=== PATIENT | female | born 1990 | race Caucasian/White ===

== ENCOUNTER 2019-06-25 10:55 | Emergency (ER) | payer BC ==
[~2019-06-25] VITALS: Ht 160 cm; Wt 68.9 kg
[2019-06-25 11:10] VITALS: BP 128/88
[2019-06-25 13:33] LABS: BASOPHILS % (AUTO) 0.2 % (0.0-2.0); EOSINOPHILS % (AUTO) 0.1 % (0.0-4.0); HEMATOCRIT 37.1 % (36-48); LYMPHOCYTES # (AUTO) 1.5 K/uL (2.5-16.5); LYMPHOCYTES % (AUTO) 20.4 % (20.5-51.1); MEAN CORPUSCULAR HEMOGLOBIN 28 pg (27-31); MEAN CORPUSCULAR HGB CONC 32 g/dL (33-37); MEAN CORPUSCULAR VOLUME 85.1 fL (80-94); MONOCYTES # (AUTO) 0.4 K/uL (0.8-1.0); MONOCYTES % (AUTO) 5.8 % (1.7-9.3); NEUTROPHILS # (AUTO) 5.3 K/uL (1.8-7.7); NEUTROPHILS % (AUTO) 73.5 % (42.2-75.2); PLATELET COUNT (AUTO) 236 K/uL (140-450); RED BLOOD CELL COUNT(AUTO) 4.36 MIL/uL (4.20-5.40); WHITE BLOOD COUNT (AUTO) 7.2 K/uL (4.8-10.8)
[2019-06-25 13:49] LABS: ANION GAP 12.1 (8-16); CARBON DIOXIDE 27.4 mmol/L (21-32); CREATININE 1.1 mg/dL (0.6-1.3); POTASSIUM 3.5 mmol/L (3.5-5.1)
[2019-06-25 14:06] LABS: APPEARANCE,URINE SL CLOUDY (CLEAR); BILIRUBIN,URINE NEGATIVE (NEGATIVE); BLOOD, URINE 2+ (NEGATIVE); LEUKOCYTE ESTERASE ,URINE NEGATIVE (NEGATIVE); NITRITE, URINE NEGATIVE (NEGATIVE); PH,URINE 6.5 (5.0-9.0); UGLUCOSE NEGATIVE (NEGATIVE)
[2019-06-25 14:26] LABS: COLOR,URINE STRAW (YELLOW); RBC,URINE 0-5 /HPF (0-5); WBC,URINE 0-5 /HPF (0-5)
[2019-06-25 15:21] VITALS: BP 121/83
[2019-06-27 06:12] LABS: CHLAMYDIA TRACHOMATIS AMP DNA Negative (Negative)
== END 2019-06-25 15:21 | disposition home or self-care (01) ==
LOC: MED 10:55
DX: O20.8 Other hemorrhage in early pregnancy (principal); Z98.890 Other specified postprocedural states
CPT/HCPCS: 36415; 76817; 80048; 81001; 81025; 84702; 85025; 86900; 86901; 87210; 87491; 99284; Q0092

== ENCOUNTER 2019-06-26 16:57 | Emergency (ER) | payer BC ==
[~2019-06-26] VITALS: Ht 160 cm; Wt 68.0 kg
[2019-06-26 17:07] VITALS: BP 118/90
--- NOTE | 2019-06-26 17:11 | NUR ---
AMBULATED TO BED 12
--- NOTE | 2019-06-26 17:12 | NUR ---
Pt taken to bed 12. Report given to Brenda DIAZ.
--- NOTE | 2019-06-26 17:14 | NUR ---
29/F C/O PAINLESS VAGINAL BLEEDING X 2 DAYS, SEEN HERE YESTERDAY FOR VAGINAL SPOTTING DURING . APPROX 5 WEEKS PER PT. STATES TODAY PASSED LARGE CLOT AND TISSUE LIKE CLOT. VSS. TO BED 12, ALL SAFETY PRECAUTIONS IN PLACE. HX NONE
--- NOTE | 2019-06-26 17:20 | NUR ---
DR. TEE EVALUATING PT AT BEDSIDE
--- NOTE | 2019-06-26 17:24 | NUR ---
PT AMB TO BATHROOM TO PROVIDE URINE SAMPLE
--- NOTE | 2019-06-26 17:27 | NUR ---
URINE SAMPLE HANDED TO TICK INSPECTOR
--- NOTE | 2019-06-26 17:28 | NUR ---
LOPPER AT BEDSIDE FOR BLOOD DRAW
--- NOTE | 2019-06-26 17:37 | NUR ---
U/S TECH AT BEDSIDE
[2019-06-26 17:41] LABS: BASOPHILS % (AUTO) 0.2 % (0.0-2.0); EOSINOPHILS % (AUTO) 0.2 % (0.0-4.0); LYMPHOCYTES # (AUTO) 2.5 K/uL (2.5-16.5); MEAN CORPUSCULAR HEMOGLOBIN 28 pg (27-31); MEAN CORPUSCULAR HGB CONC 32 g/dL (33-37); MEAN CORPUSCULAR VOLUME 84.9 fL (80-94); MONOCYTES # (AUTO) 0.7 K/uL (0.8-1.0); MONOCYTES % (AUTO) 7.9 % (1.7-9.3); NEUTROPHILS # (AUTO) 5.7 K/uL (1.8-7.7); NEUTROPHILS % (AUTO) 63.7 % (42.2-75.2); PLATELET COUNT (AUTO) 230 K/uL (140-450); RED BLOOD CELL COUNT(AUTO) 4.35 MIL/uL (4.20-5.40); RED CELL DISTRIBUTION WIDTH 16.9 % (11.6-13.7); WHITE BLOOD COUNT (AUTO) 8.9 K/uL (4.8-10.8)
[2019-06-26 17:43] LABS: APPEARANCE,URINE CLEAR (CLEAR); BILIRUBIN,URINE NEGATIVE (NEGATIVE); BLOOD, URINE 3+ (NEGATIVE); COLOR,URINE YELLOW (YELLOW); LEUKOCYTE ESTERASE ,URINE NEGATIVE (NEGATIVE); NITRITE, URINE NEGATIVE (NEGATIVE); UGLUCOSE NEGATIVE (NEGATIVE)
--- NOTE | 2019-06-26 17:57 | NUR ---
Female [employer] (MYSELF) accompanied DR. TEE FOR female patient Pelvic Exam.
[2019-06-26 18:00] LABS: RBC,URINE 20-50 /HPF (0-5); WBC,URINE 0-5 /HPF (0-5)
[2019-06-26 19:00] VITALS: BP 116/73
--- NOTE | 2019-06-26 19:00 | NUR ---
Patient discharged with v/s stable. Written and verbal after care instructions given and explained. Patient verbalized understanding. Ambulatory with steady gait. All questions addressed prior to discharge. Advised to follow up with PMD.
== END 2019-06-26 19:00 | disposition home or self-care (01) ==
LOC: MED 16:57
DX: O03.9 Complete or unspecified spontaneous abortion without complication (principal)
CPT/HCPCS: 36415; 76817; 81001; 81025; 84702; 85025; 99284; Q0092